=== PATIENT | male | born 1985 | race Caucasian/White ===

== ENCOUNTER 2017-02-20 09:49 | Outpatient (CLI) ==
[2017-02-20 10:22] LABS: CHOL/HDL RATIO 4.6 (4.5-6.4)
== END 2017-02-20 09:50 | disposition home or self-care (01) ==
LOC: LAB 09:49
PROVIDERS: ATTEND Family Medicine
DX: I10 Essential (primary) hypertension (principal); E78.00 Pure hypercholesterolemia, unspecified
CPT/HCPCS: 36415; 80061; 93005; 93010